=== PATIENT | female | born 1980 | race Caucasian/White ===

== ENCOUNTER 2017-11-23 21:27 | Emergency (ER) | payer OTHER ==
[~2017-11-23] VITALS: Ht 175.3 cm; Wt 68.0 kg
[~2017-11-23 21:27] MED LIST: IBUPROFEN 800800 MG PO; NAPROSYN500 MG PO; NORCO 5-325 TA1 EACH PO; PENICILLIN VK500 M1 PO; ULTRAM 50MG TAB50 MG PO
[2017-11-23 21:41] VITALS: BP 119/74
[2017-11-23] MEDS ORDERED: PENICILLIN VK500 MG PO (21:42)
== END 2017-11-23 21:49 | disposition home or self-care (01) ==
LOC: M.ERS 21:27
DX: K08.89 Other specified disorders of teeth and supporting structures (principal)

== ENCOUNTER 2019-12-08 20:07 | Emergency (ER) | payer OTHER ==
[~2019-12-08] VITALS: Ht 147.3 cm; Wt 77.1 kg
[~2019-12-08 20:07] MED LIST changes: +PENICILLIN VK500 MG PO
[2019-12-08 21:11] LABS: URINE BILIRUBIN NEGATIVE (Negative); URINE BLOOD 3+ (Negative); URINE CLARITY TURBID; URINE COLOR DARK YELLOW; URINE GLUCOSE-RANDOM NEGATIVE (Negative); URINE KETONES NEGATIVE (Negative); URINE LEUKOCYTES 1+ (Negative); URINE NITRITE POSITIVE (Negative); URINE PROTEIN 2+ (Negative); URINE SPECIFIC GRAVITY >= 1.030 (1.005-1.030); URINE UROBILINOGEN 0.2 E.U./dl (0.2-1.0)
[2019-12-08] MEDS ORDERED: KEFLEX500 M1 PO (21:19)
[2019-12-08] MEDS ORDERED: PYRIDIUM200 MG PO (21:19)
[2019-12-08 21:22] LABS: SQUAMOUS 0-3 Few /LPF (0-3); URINE WBC >25 Many /HPF (0-5)
[2019-12-08 21:23] LABS: BACTERIA >30 Many /HPF (None Seen); CASTS None Seen /LPF (None Seen); CRYSTALS None Seen /LPF (None Seen)
[2019-12-08 21:41] VITALS: BP 131/78
== END 2019-12-08 21:41 | disposition home or self-care (01) ==
LOC: M.ERS 20:07
PROVIDERS: Personal Emergency Response Attendant
DX: N39.0 Urinary tract infection, site not specified (principal); F17.210 Nicotine dependence, cigarettes, uncomplicated; Z98.51 Tubal ligation status